=== PATIENT | male | born 1975 | race Caucasian/White ===

== ENCOUNTER 2022-02-12 14:43 | Emergency (ER) | payer OTHER | END 2022-02-12 17:00 | disposition home or self-care (01) | LOC: JD.ED 14:43 | DX: S06.0X0A Concussion without loss of consciousness, initial encounter (principal); I10 Essential (primary) hypertension; Z86.16 Personal history of COVID-19; Z88.1 Allergy status to other antibiotic agents; Z79.899 Other long term (current) drug therapy; W20.8XXA Other cause of strike by thrown, projected or falling object, initial encounter | CPT/HCPCS: 70450; 70450-26; 99283-25 ==

== ENCOUNTER 2022-06-06 11:07 | Emergency (ER) | payer OTHER ==
[2022-06-06] MEDS ORDERED: Sodium Chloride 0.9% 10 ML Syringe FLUSH PRN (11:59)
[2022-06-06] MEDS ORDERED: diphenhydrAMINE 50 MG/ML SDV IVPUSH ONE (11:59)
[2022-06-06] MEDS ORDERED: Sodium Chloride 0.9% 1,000 ML IV ONE (11:59)
[2022-06-06] MEDS ORDERED: Metoclopramide 10 MG/2 ML SDV IVPUSH ONE (11:59)
[2022-06-06] MEDS ORDERED: HYDROmorphone 1 MG/ML Syringe IVPUSH STA (12:00)
[2022-06-06 12:33] LABS: ESTIMATED GFR 95 mL/min (>60)
== END 2022-06-06 14:06 | disposition home or self-care (01) ==
LOC: JD.ED 11:07
DX: G43.901 Migraine, unspecified, not intractable, with status migrainosus (principal); E03.9 Hypothyroidism, unspecified; I10 Essential (primary) hypertension; J45.909 Unspecified asthma, uncomplicated; Z88.1 Allergy status to other antibiotic agents; Z79.899 Other long term (current) drug therapy; Z86.16 Personal history of COVID-19
CPT/HCPCS: 36415; 70450; 80053; 83735; 85025; 85610; 85730; 86140; 96361; 96374; 96375; 99284; J1170; J1200; J2765; J3490; J7030